=== PATIENT | male | born 2000 | race Caucasian/White ===

== ENCOUNTER 2020-06-08 09:34 | Day surgery (SDC) | payer OTHER ==
[2020-06-07 09:04] VITALS: BMI 18.8
[~2020-06-08 09:34] MED LIST: LACTATED RINGERS 1,000 ML IV SCH
[2020-06-08 10:07] VITALS: TEMP 97.8
[2020-06-08] MEDS ORDERED: MIDAZOLAM 2 MG/2 ML VIAL ONE (10:24)
[2020-06-08] MEDS ORDERED: PROPOFOL 10 MG/ML 20 ML VIAL IV ONE (10:24)
[2020-06-08] MEDS ORDERED: fentaNYL (PF) 50 MCG/ML 2 ML AMP ONE (10:24)
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
--- NOTE | 2020-06-08 10:47 | P.PCN ---
Date of Procedure: 06/08/20 Procedure(s) Performed: PREOPERATIVE DIAGNOSIS: Rectal bleeding, diarrhea POSTOPERATIVE DIAGNOSIS: Normal-appearing colon and ileum PROCEDURE: Colonoscopy with biopsy ANESTHESIA: MAC SURGEON: Yeison Lopez M.D. SPECIMENS: Ileum, random: ENDOSCOPIC PROCEDURE: The patient was placed on the endoscopy table in the left decubitus position. The Olympus colonoscope was inserted into the anus and passed under direct visualization to the base of the cecum. The appendiceal orifice was visualized. The terminal ileum was inspected. No gross abnormalities were present. Biopsies were taken of the ileum. From that point the scope was slowly withdrawn inspecting all surfaces carefully. There were no neoplastic inflammatory or polypoid lesions throughout the cecum, ascending, transverse, descending, sigmoid and rectum. Random biopsies of the colon took place to rule out microscopic colitis. There was no visible diverticulosis noted. Digital rectal examination was normal. The patient was taken to the recovery room in stable condition per anesthesia guidelines. RECOMMENDATIONS: Await biopsy results. If biopsy results negative consider small bowel imaging or GI consult.
[2020-06-08 10:51] VITALS: RESP 16
[2020-06-08 11:18] VITALS: BP 109/58; PULSE 59
== END 2020-06-08 11:42 | disposition home or self-care (01) ==
LOC: ORWHC2ENDO 09:34
PROVIDERS: ATTEND Surgery
DX: K52.9 Noninfective gastroenteritis and colitis, unspecified (principal); K62.5 Hemorrhage of anus and rectum; K21.9 Gastro-esophageal reflux disease without esophagitis; F17.290 Nicotine dependence, other tobacco product, uncomplicated
CPT/HCPCS: 88305; 45380; J2250; J3010; J2704

== ENCOUNTER 2020-08-30 08:24 | Day surgery (SDC) | payer OTHER ==
[2020-08-25 14:47] VITALS: BMI 18.8
[~2020-08-30 08:24] MED LIST changes: +LIDOCAINE 1% (10MG/ML) FOR IV START INTRADERMA PRN
[2020-08-30 08:46] VITALS: RESP 16; TEMP 98
[2020-08-30] MEDS ORDERED: LIDOCAINE 1% INJ 10MG/ML (20 ML MDV) ONE (09:32)
[2020-08-30] MEDS ORDERED: PROPOFOL 10 MG/ML 20 ML VIAL IV ONE (09:32)
--- NOTE | 2020-08-30 09:51 | P.PCN ---
Date of Procedure: 08/30/20 Description of Procedure: BRIEF HISTORY: Patient is a 20-year-old male presenting for outpatient es ophagogastroduodenoscopy for evaluation of GERD. Patient had previously been seen for colonoscopy on 06/08/20 performed in evaluation of diarrhea. He reports a constellation of symptoms including diarrhea, abdominal pain and uncontrolled reflux occurring since age of 15. He reports trying multiple dietary modifications with no improvement and had been seen reporting increasing frequency of reflux. He was started on omeprazole therapy but found it difficult to adhere to the medication. PROCEDURE PERFORMED: Esophagogastroduodenoscopy with biopsy. PREOPERATIVE DIAGNOSIS: GERD. ESTIMATED BLOOD LOSS: Minimal. IV sedation per anesthesia. PROCEDURE: After informed consent was obtained, the patient was brought into the endoscopy unit. IV sedation was administered by Anesthesia under continuous monitoring. Initially the Olympus GIF-190 video endoscope was inserted into the mouth. Esophagus intubated without any difficulty. It was gradually advanced into the stomach and duodenum and carefully examined. The bulb and the second part of the duodenum appeared normal with biopsies. The scope at this time was withdrawn to the stomach, adequately insufflated with air, and upon careful examination, mucosa of the antrum, body, cardia and the fundus appeared normal , with some mild punctate erythema scattered throughout the antrum and body suggestive of mild gastritis with biopsies taken. The scope was then withdrawn into the esophagus. The GE junction was located at 45 cm from the incisors. Biopsies taken of the lower esophagus and midesophagus. The esophagus appeared normal. There were no erosions or ulcerations seen and the patient tolerated the procedure well. IMPRESSION: 1. Mild gastritis. 2. Biopsies of the duodenum, antrum and body, lower esophagus and midesophagus. RECOMMENDATIONS: The findings of this examination were discussed with the patient. Okay to resume diet. Okay to resume medications. Await pathology from biopsies. Follow up in the GI clinic as scheduled. Continue current medical management with dicyclomine and Pepcid.
[2020-08-30 10:08] VITALS: BP 115/67; PULSE 51
== END 2020-08-30 10:50 | disposition home or self-care (01) ==
LOC: ORWHC2ENDO 08:24
PROVIDERS: ATTEND Internal Medicine
DX: K29.50 Unspecified chronic gastritis without bleeding (principal); A04.8 Other specified bacterial intestinal infections; K21.00 Gastro-esophageal reflux disease with esophagitis, without bleeding; Z79.899 Other long term (current) drug therapy; Z98.890 Other specified postprocedural states; F17.290 Nicotine dependence, other tobacco product, uncomplicated
CPT/HCPCS: 88305; 88342; 43239; J2001; J2704